=== PATIENT | male | born 1975 | race Caucasian/White ===

== ENCOUNTER 2016-11-20 06:51 | Emergency (ER) | payer BC ==
[~2016-11-20] VITALS: Ht 167.6 cm; Wt 88.6 kg
[2016-11-20 06:54] VITALS: BP 140/88; TEMP 98.6
[2016-11-20] MEDS ORDERED: PREDNISONE20 MG PO (07:40)
[2016-11-20] MEDS ORDERED: PROAIR HFA0.09 MG/AC IH (07:41)
[2016-11-20 08:05] VITALS: PULSE 88
== END 2016-11-20 08:01 | disposition home or self-care (01) ==
LOC: COL.ER 06:51
DX: J45.901 Unspecified asthma with (acute) exacerbation (principal)
CPT/HCPCS: J7512